=== PATIENT | female | born 1965 | race Caucasian/White ===

== ENCOUNTER 2016-08-25 11:27 | Emergency (ER) | payer OTHER ==
[~2016-08-25] VITALS: Ht 160 cm; Wt 56.7 kg
[~2016-08-25 11:27] MED LIST: 'PARAFON FORTE500 M1 PO; CEPHALEXIN500 M1 PO; CIPROFLOXACIN500 MG PO; FLEXERIL5 MG PO; HYDROCODONE BIT1 T11 PO; KEFLEX500 MG PO; MOTRIN600 MG PO; MOTRIN800 MG PO; NAPROSYN500 MG PO; NKHM; PREDNICOT20 MG PO; ULTRAM50 MG PO; ZYRTEC10 MG PO
[2016-08-25] MEDS ORDERED: KEFLEX500 M1 PO (13:29)
[2016-08-25] MEDS ORDERED: NAPROSYN500 MG PO (13:29)
[2016-08-25] MEDS ORDERED: ANTIBIOTIC O500 U/GM T (13:30)
== END 2016-08-25 13:34 | disposition home or self-care (01) ==
LOC: ED 11:27
DX: S51.012A Laceration without foreign body of left elbow, initial encounter (principal); S50.02XA Contusion of left elbow, initial encounter; R03.0 Elevated blood-pressure reading, without diagnosis of hypertension; F17.200 Nicotine dependence, unspecified, uncomplicated; W22.8XXA Striking against or struck by other objects, initial encounter; Y93.89 Activity, other specified; Y92.89 Other specified places as the place of occurrence of the external cause; Y99.9 Unspecified external cause status

== ENCOUNTER 2017-04-24 13:42 | Emergency (ER) | payer OTHER ==
[~2017-04-24] VITALS: Ht 160 cm; Wt 56.7 kg
[~2017-04-24 13:42] MED LIST changes: +ANTIBIOTIC O500 U/GM T; +KEFLEX500 M1 PO
[2017-04-24] MEDS ORDERED: LIDEX 0.05% CRE15 GM T (14:51)
== END 2017-04-24 14:59 | disposition home or self-care (01) ==
LOC: ED 13:42
DX: S90.562A Insect bite (nonvenomous), left ankle, initial encounter (principal); S90.561A Insect bite (nonvenomous), right ankle, initial encounter; S40.861A Insect bite (nonvenomous) of right upper arm, initial encounter; S00.261A Insect bite (nonvenomous) of right eyelid and periocular area, initial encounter; F17.200 Nicotine dependence, unspecified, uncomplicated; W57.XXXA Bitten or stung by nonvenomous insect and other nonvenomous arthropods, initial encounter; Y93.89 Activity, other specified; Y92.89 Other specified places as the place of occurrence of the external cause; Y99.8 Other external cause status

== ENCOUNTER 2017-12-02 17:10 | Emergency (ER) | payer OTHER ==
[~2017-12-02] VITALS: Ht 157.4 cm; Wt 56.7 kg
[~2017-12-02 17:10] MED LIST changes: +LIDEX 0.05% CRE15 GM T
[2017-12-02] MEDS ORDERED: Motrin,Rufen800 MG PO (17:21)
[2017-12-02] MEDS ORDERED: AMOXICILLIN500 M2 PO (17:21)
== END 2017-12-02 17:25 | disposition home or self-care (01) ==
LOC: ED 17:10
DX: K02.9 Dental caries, unspecified (principal)

== ENCOUNTER 2018-06-10 16:12 | Emergency (ER) | payer OTHER ==
[~2018-06-10] VITALS: Ht 157.4 cm; Wt 54.4 kg
[~2018-06-10 16:12] MED LIST changes: +AMOXICILLIN500 M2 PO; +Motrin,Rufen800 MG PO
[2018-06-10] MEDS ORDERED: SEPTDS PO (16:35)
[2018-06-10] MEDS ORDERED: CEPHALEXIN500 M1 PO (16:35)
[2018-07-09] MEDS ORDERED: TRAMADOL HCL50 MG PO (11:37)
[2018-10-05] MEDS ORDERED: IBUPROFEN600 MG PO (14:33)
== END 2018-06-10 16:35 | disposition home or self-care (01) ==
LOC: ED 16:12
DX: L02.212 Cutaneous abscess of back [any part, except buttock and flank] (principal); F17.200 Nicotine dependence, unspecified, uncomplicated; Z79.2 Long term (current) use of antibiotics; Z79.899 Other long term (current) drug therapy

== ENCOUNTER 2018-07-01 09:31 | Emergency (ER) | payer OTHER ==
[~2018-07-01] VITALS: Ht 157.4 cm; Wt 54.0 kg
--- NOTE | ~2018-07-01 | EKG ---
[place], [place] ELECTROCARDIOGRAM REPORT NAME: JULIANNA MAO UNIT #: [id number] ROOM: DOCTOR: EPIPHANY DRAFT REPORT BIRTHDATE: [birth year] [facility] Test Date: 2018-07-01 Test Time: 10:13:00 Pat Name: JULIANNA MAO Department: Room: Gender: F [employer]: : 1965 Requested By: TISH MARTINEZ Order Number: [id number] Reading MD: Bao Fernando MD Measurements Intervals [place] Rate: 100 P: 20 VA: 144 QRS: 29 QRSD: 76 T: 11 QT: 344 QTc: 444 Interpretive Statements Sinus tachycardia Probable left atrial enlargement No previous ECG available for comparison Electronically Signed On 07-03-2018 7:45:02 PST by Bao Fernando MD CM:EKGRPT:ELECTROCARDIOGRAM REPORT [id number] TISH MARTINEZ EPIPHANY DRAFT REPORT TISH MARTINEZ
[~2018-07-01 09:31] MED LIST changes: +SEPTDS PO
[2018-07-01 10:19] LABS: BASO % 0.2 % (0.0-1.0); EOS # 0.2 10*3/uL (0.0-0.4); EOS % 3.2 % (1.0-4.0); HEMATOCRIT 44.2 % (37.0-47.0); HEMOGLOBIN 14.8 g/dl (12.0-16.0); LYMPH # 0.4 10*3/uL (1.3-4.4); LYMPH % 5.7 % (27.0-41.0); MEAN CELL VOLUME 98.7 fl (81.0-99.0); MEAN CORPUSCULAR HGB CONC 33.5 g/dl (33.0-37.0); MEAN PLATELET VOLUME 9.3 fl (9.6-12.3); MONO # 0.4 10*3/uL (0.1-1.0); NEUT # 5.3 10*3/uL (2.3-7.9); NEUT % 83.4 % (47.0-73.0); PLATELET COUNT AUTOMATED 181 10*3/uL (130-400); RED BLOOD COUNT 4.48 10*6/uL (4.10-5.10); WHITE BLOOD COUNT 6.3 10*3/uL (4.8-10.8)
[2018-07-01 10:45] LABS: ALBUMIN 3.5 gm/dl (3.1-4.5); ALKALINE PHOSPHATASE 72 U/L (45-117); BUN 6 mg/dl (7-24); CHLORIDE 100 mmol/L (98-107); CREATININE 0.69 mg/dL (0.55-1.02); POTASSIUM 4.1 mmol/L (3.5-5.1); SGOT/AST 44 IU/L (3-35); SGPT/ALT 38 U/L (12-78); SODIUM 133 mmol/L (136-145); TOTAL PROTEIN 7.4 gm/dL (6.4-8.2)
[2018-07-01 10:49] LABS: TROPONIN I < 0.015 ng/ml (<0.045)
[2018-07-01] MEDS ORDERED: ROBAXIN500 M1 PO (11:21)
[2018-07-01] MEDS ORDERED: NAPROSYN500 MG PO (11:21)
[2018-07-09] MEDS ORDERED: TRAMADOL HCL50 MG PO (11:37)
[2018-10-05] MEDS ORDERED: IBUPROFEN600 MG PO (14:33)
== END 2018-07-01 11:30 | disposition home or self-care (01) ==
LOC: ED 09:31
PROVIDERS: Nurse Practitioner Family
DX: B27.90 Infectious mononucleosis, unspecified without complication (principal); M25.511 Pain in right shoulder; M25.512 Pain in left shoulder; F17.200 Nicotine dependence, unspecified, uncomplicated; Z79.2 Long term (current) use of antibiotics

== ENCOUNTER → 2018-07-09 | Day surgery (SDC) | payer OTHER ==
[~2018-07-09] VITALS: Ht 154.9 cm; Wt 54.0 kg
[~2018-07-09] MED LIST changes: +IBUPROFEN600 MG PO; +ROBAXIN500 M1 PO; +TRAMADOL HCL50 MG PO
[2018-07-09 09:54] VITALS: BP 130/69
[2018-07-09 11:15] VITALS: BP 103/79
[2018-07-09 11:29] VITALS: BP 107/71
[2018-07-09 11:45] VITALS: BP 124/72
== END | disposition home or self-care (01) ==
LOC: SDC 07-08 12:30
DX: L72.0 Epidermal cyst (principal); K21.9 Gastro-esophageal reflux disease without esophagitis; F17.210 Nicotine dependence, cigarettes, uncomplicated; Z98.890 Other specified postprocedural states; Z79.899 Other long term (current) drug therapy; Z72.89 Other problems related to lifestyle; Z82.49 Family history of ischemic heart disease and other diseases of the circulatory system; Z83.3 Family history of diabetes mellitus

== ENCOUNTER 2019-03-11 22:26 | Emergency (ER) | payer OTHER ==
[~2019-03-11] VITALS: Ht 157.4 cm; Wt 56.7 kg
[2019-03-12] MEDS ORDERED: PREDNISONE20 M1 PO (00:28)
[2019-03-12] MEDS ORDERED: ZITHROMAX250 MG PO (00:28)
== END 2019-03-12 01:37 | disposition home or self-care (01) ==
LOC: ED 22:26
DX: J40 Bronchitis, not specified as acute or chronic (principal); F17.200 Nicotine dependence, unspecified, uncomplicated; Z79.899 Other long term (current) drug therapy; Z79.2 Long term (current) use of antibiotics

== ENCOUNTER → 2019-07-03 | Outpatient (CLI) | payer OTHER ==
[~2019-07-03] MED LIST changes: +PREDNISONE20 M1 PO; +ZITHROMAX250 MG PO
== END | disposition home or self-care (01) ==
LOC: RAD 10:43
DX: M19.071 Primary osteoarthritis, right ankle and foot (principal); M77.9 Enthesopathy, unspecified

== ENCOUNTER 2019-09-14 15:30 | Emergency (ER) | payer OTHER ==
[~2019-09-14] VITALS: Ht 157.4 cm; Wt 59.0 kg
[2019-09-14 16:21] LABS: BASO # 0.1 10*3/uL (0.0-0.1); BASO % 0.7 % (0.0-1.0); EOS # 0.2 10*3/uL (0.0-0.4); EOS % 2.9 % (1.0-4.0); LYMPH # 2.1 10*3/uL (1.3-4.4); LYMPH % 29.6 % (27.0-41.0); MEAN CELL VOLUME 95.9 fl (81.0-99.0); MEAN CORPUSCULAR HGB 32.2 pg (27.0-31.0); MEAN CORPUSCULAR HGB CONC 33.6 g/dl (33.0-37.0); MEAN PLATELET VOLUME 9.1 fl (9.6-12.3); MONO # 0.9 10*3/uL (0.1-1.0); MONO % 12.4 % (3.0-9.0); NEUT # 3.7 10*3/uL (2.3-7.9); NEUT % 54.1 % (47.0-73.0); PLATELET COUNT AUTOMATED 224 10*3/uL (130-400); RED BLOOD COUNT 4.38 10*6/uL (4.10-5.10); RED CELL DISTRI WIDTH 11.8 % (0-14.5); WHITE BLOOD COUNT 6.9 10*3/uL (4.8-10.8)
[2019-09-14 16:38] LABS: ALBUMIN 3.5 gm/dl (3.1-4.5); ALKALINE PHOSPHATASE 112 U/L (45-117); BUN 7 mg/dl (7-24); CHLORIDE 106 mmol/L (98-107); CREATININE 0.62 mg/dL (0.55-1.02); LIPASE 198 U/L (73-393); POTASSIUM 3.9 mmol/L (3.5-5.1); SGOT/AST 22 IU/L (3-35); SGPT/ALT 37 U/L (12-78); SODIUM 137 mmol/L (136-145); TOTAL PROTEIN 7.4 gm/dL (6.4-8.2)
[2019-09-14 16:39] LABS: BILIRUBIN NEGATIVE (NEGATIVE); BLOOD TRACE-INTACT (NEGATIVE); CLARITY CLOUDY (CLEAR); COLOR YELLOW (YELLOW); GLUCOSE NEGATIVE (NEGATIVE); KETONE NEGATIVE (NEGATIVE); LEUKO ESTERASE 2+ (NEGATIVE); NITRITE NEGATIVE (NEGATIVE); UROBILINOGEN 0.2 E.U./dl (0.2-1.0)
[2019-09-14 17:02] LABS: WBC TNTC wbc/hpf (0-5)
[2019-09-14 17:03] LABS: BACTERIA 3+
[2019-09-14] MEDS ORDERED: MACROBID100 M1 PO (17:44)
[2019-09-14] MEDS ORDERED: PYRIDIUM200 M1 PO (17:44)
== END 2019-09-14 17:49 | disposition home or self-care (01) ==
LOC: ED 15:30
PROVIDERS: Emergency Medicine
DX: N39.0 Urinary tract infection, site not specified (principal); R14.0 Abdominal distension (gaseous); R63.5 Abnormal weight gain; Z79.2 Long term (current) use of antibiotics; Z79.899 Other long term (current) drug therapy

== ENCOUNTER → 2019-11-20 | Outpatient (CLI) | payer OTHER ==
[~2019-11-20] MED LIST changes: +MACROBID100 M1 PO; +PRILOSEC20 M1 PO; +PYRIDIUM200 M1 PO
== END | disposition home or self-care (01) ==
LOC: COVID19 00:07
DX: Z11.59 Encounter for screening for other viral diseases (principal)

== ENCOUNTER → 2019-11-27 | Day surgery (SDC) | payer OTHER ==
[~2019-11-27] VITALS: Ht 157.4 cm; Wt 60.3 kg
[2019-11-27 07:30] VITALS: BP 151/81
[2019-11-27 08:33] VITALS: BP 127/85
[2019-11-27 08:45] VITALS: BP 144/82
[2019-11-27 09:02] VITALS: BP 144/71
== END | disposition home or self-care (01) ==
LOC: SDC 11-23 08:45
DX: K92.1 Melena (principal); K21.9 Gastro-esophageal reflux disease without esophagitis; K44.9 Diaphragmatic hernia without obstruction or gangrene; K64.8 Other hemorrhoids; I10 Essential (primary) hypertension; Z87.891 Personal history of nicotine dependence; Z79.899 Other long term (current) drug therapy; Z83.3 Family history of diabetes mellitus

== ENCOUNTER 2020-07-07 20:00 | Emergency (ER) | payer OTHER ==
[~2020-07-07] VITALS: Ht 157.4 cm; Wt 61.2 kg
[2020-07-07 20:21] LABS: BILIRUBIN Negative (Negative); BLOOD Negative (Negative); CLARITY Clear (Clear); COLOR Yellow (Yellow); GLUCOSE Negative (Negative); KETONE Negative (Negative); LEUKO ESTERASE Negative (Negative); NITRITE Negative (Negative); SPECIFIC GRAVITY 1.015 (1.001-1.030); UROBILINOGEN 0.2 E.U./dl (0.0-1.0)
[2020-07-07 20:29] LABS: BACTERIA 1+; MUCOUS TRACE; RBC 0-2 rbc/hpf (0-2); WBC 0-2 wbc/hpf (0-5)
[2020-07-07 21:07] LABS: BASO # 0.1 10*3/uL (0.0-0.1); BASO % 1.1 % (0.0-1.0); EOS # 0.1 10*3/uL (0.0-0.4); EOS % 2.4 % (1.0-4.0); LYMPH # 2.3 10*3/uL (1.3-4.4); LYMPH % 49.8 % (27.0-41.0); MEAN CELL VOLUME 93.2 fl (81.0-99.0); MEAN CORPUSCULAR HGB 31.1 pg (27.0-31.0); MEAN CORPUSCULAR HGB CONC 33.4 g/dl (33.0-37.0); MEAN PLATELET VOLUME 8.8 fl (9.6-12.3); MONO # 0.5 10*3/uL (0.1-1.0); MONO % 11.5 % (3.0-9.0); NEUT # 1.6 10*3/uL (2.3-7.9); PLATELET COUNT AUTOMATED 229 10*3/uL (130-400); RED CELL DISTRI WIDTH 11.7 % (0-14.5); WHITE BLOOD COUNT 4.5 10*3/uL (4.8-10.8)
[2020-07-07 21:22] LABS: ALBUMIN 3.7 gm/dl (3.1-4.5); ALKALINE PHOSPHATASE 81 U/L (45-117); BUN 8 mg/dl (7-24); CHLORIDE 110 mmol/L (98-107); LIPASE 114 U/L (73-393); POTASSIUM 3.9 mmol/L (3.5-5.1); SGOT/AST 25 IU/L (3-35); SGPT/ALT 40 U/L (12-78); SODIUM 142 mmol/L (136-145); TOTAL PROTEIN 7.4 gm/dL (6.4-8.2)
== END 2020-07-07 23:46 | disposition home or self-care (01) ==
LOC: ED 20:00
PROVIDERS: Emergency Medicine; Student in an Organized Health Care Education/Training Program
DX: R10.31 Right lower quadrant pain (principal); R11.0 Nausea; K21.9 Gastro-esophageal reflux disease without esophagitis; F17.200 Nicotine dependence, unspecified, uncomplicated; Z79.899 Other long term (current) drug therapy

== ENCOUNTER → 2020-08-03 | Outpatient (CLI) | payer OTHER ==
[~2020-08-03] MED LIST changes: +ZOFRAN4 MG PO
== END | disposition home or self-care (01) ==
LOC: US 07:30
PROVIDERS: ATTEND Nurse Practitioner Family
DX: K76.0 Fatty (change of) liver, not elsewhere classified (principal)

== ENCOUNTER 2020-08-19 17:35 | Emergency (ER) | payer OTHER ==
[~2020-08-19] VITALS: Ht 157.4 cm
[~2020-08-19 17:35] MED LIST changes: -ZOFRAN4 MG PO
[2020-08-19 18:53] LABS: BASO % 0.5 % (0.0-1.0); EOS % 0.4 % (1.0-4.0); HEMATOCRIT 44.4 % (37.0-47.0); LYMPH # 1.6 10*3/uL (1.3-4.4); LYMPH % 21.4 % (27.0-41.0); MEAN CELL VOLUME 92.7 fl (81.0-99.0); MEAN CORPUSCULAR HGB 30.9 pg (27.0-31.0); MEAN CORPUSCULAR HGB CONC 33.3 g/dl (33.0-37.0); MEAN PLATELET VOLUME 9.2 fl (9.6-12.3); MONO # 0.7 10*3/uL (0.1-1.0); NEUT # 5.2 10*3/uL (2.3-7.9); PLATELET COUNT AUTOMATED 252 10*3/uL (130-400); RED BLOOD COUNT 4.79 10*6/uL (4.10-5.10); RED CELL DISTRI WIDTH 12.6 % (0-14.5); WHITE BLOOD COUNT 7.7 10*3/uL (4.8-10.8)
[2020-08-19 19:11] LABS: ALBUMIN 4.2 gm/dl (3.1-4.5); ALKALINE PHOSPHATASE 98 U/L (45-117); BUN 6 mg/dl (7-24); CHLORIDE 101 mmol/L (98-107); CREATININE 0.65 mg/dL (0.55-1.02); LIPASE 89 U/L (73-393); POTASSIUM 3.3 mmol/L (3.5-5.1); SGOT/AST 22 IU/L (3-35); SGPT/ALT 35 U/L (12-78); SODIUM 136 mmol/L (136-145)
[2020-08-19 20:11] LABS: BILIRUBIN Negative (Negative); BLOOD Negative (Negative); CLARITY Cloudy (Clear); COLOR Yellow (Yellow); GLUCOSE Negative (Negative); KETONE Trace (Negative); LEUKO ESTERASE Negative (Negative); NITRITE Negative (Negative); UROBILINOGEN 0.2 E.U./dl (0.0-1.0)
[2020-08-19 20:20] LABS: BACTERIA TRACE; EPITHELIAL CELLS 21-30; WBC 0-2 wbc/hpf (0-5)
[2020-08-19] MEDS ORDERED: ZOFRAN4 MG PO (22:23)
== END 2020-08-19 22:55 | disposition home or self-care (01) ==
LOC: ED 17:35
PROVIDERS: Emergency Medicine
DX: A08.4 Viral intestinal infection, unspecified (principal); R11.2 Nausea with vomiting, unspecified; Z79.899 Other long term (current) drug therapy

== ENCOUNTER → 2020-09-30 | Outpatient (CLI) | payer OTHER ==
[~2020-09-30] MED LIST changes: +ZOFRAN4 MG PO
[2020-09-30 09:27] LABS: HEMATOCRIT 44.1 % (37.0-47.0); MEAN CELL VOLUME 97.8 fl (81.0-99.0); MEAN CORPUSCULAR HGB CONC 31.7 g/dl (33.0-37.0); MEAN PLATELET VOLUME 9.3 fl (9.6-12.3); RED BLOOD COUNT 4.51 10*6/uL (4.10-5.10); RED CELL DISTRI WIDTH 12.1 % (0-14.5); WHITE BLOOD COUNT 7.3 10*3/uL (4.8-10.8)
[2020-09-30 10:02] LABS: ALBUMIN 3.8 gm/dl (3.1-4.5); BILIRUBIN, DIRECT < 0.1 mg/dL (0.0-0.2); SGPT/ALT 30 U/L (12-78)
[2020-09-30 10:05] LABS: ALKALINE PHOSPHATASE 82 U/L (45-117); CHOLESTEROL 222 mg/dL (<200); LDL CHOLESTEROL 124 mg/dL (9-159); SGOT/AST 24 IU/L (3-35); TOTAL PROTEIN 7.5 gm/dL (6.4-8.2); TRIGLYCERIDES 250 mg/dl (<150)
== END | disposition home or self-care (01) ==
LOC: LAB 08:49
PROVIDERS: ATTEND Nurse Practitioner Family
DX: K76.0 Fatty (change of) liver, not elsewhere classified (principal)

== ENCOUNTER 2020-12-21 14:51 | Emergency (ER) | payer OTHER ==
[~2020-12-21] VITALS: Wt 61.2 kg
== END 2020-12-21 19:48 | disposition home or self-care (01) ==
LOC: ED 14:51
DX: M71.552 Other bursitis, not elsewhere classified, left hip (principal); Z79.899 Other long term (current) drug therapy

== ENCOUNTER 2021-03-07 09:57 | Emergency (ER) | payer OTHER ==
[2021-03-07 10:20] LABS: BASO % 0.5 % (0.0-1.0); EOS # 0.1 10*3/uL (0.0-0.4); EOS % 0.9 % (1.0-4.0); HEMATOCRIT 44.2 % (37.0-47.0); LYMPH # 2.8 10*3/uL (1.3-4.4); MEAN CELL VOLUME 93.8 fl (81.0-99.0); MEAN CORPUSCULAR HGB 31.4 pg (27.0-31.0); MEAN CORPUSCULAR HGB CONC 33.5 g/dl (33.0-37.0); MONO % 12.6 % (3.0-9.0); NEUT # 4.2 10*3/uL (2.3-7.9); NEUT % 51.6 % (47.0-73.0); PLATELET COUNT AUTOMATED 266 10*3/uL (130-400); RED BLOOD COUNT 4.71 10*6/uL (4.10-5.10); RED CELL DISTRI WIDTH 12.2 % (0-14.5); WHITE BLOOD COUNT 8.1 10*3/uL (4.8-10.8)
[2021-03-07 10:30] LABS: ACT PARTIAL THROMBO TIME 29.1 SECONDS (20.0-32.1); INTERNATIONAL NORM RATIO 0.9 (2.0-3.5)
[2021-03-07 10:40] LABS: ALBUMIN 3.8 gm/dl (3.1-4.5); BUN 5 mg/dl (7-24); CHLORIDE 107 mmol/L (98-107); CREATININE 0.51 mg/dL (0.55-1.02); POTASSIUM 3.4 mmol/L (3.5-5.1); SGOT/AST 15 IU/L (3-35); SGPT/ALT 27 U/L (12-78); SODIUM 139 mmol/L (136-145)
[2021-03-07 11:00] LABS: ALKALINE PHOSPHATASE 96 U/L (45-117)
[2021-03-07 11:01] LABS: TROPONIN I < 0.015 ng/ml (<0.045)
[2021-03-07] MEDS ORDERED: METHOCARBAMOL500 M1 PO (16:23)
[2021-03-07] MEDS ORDERED: IBUPROFEN600 MG PO (16:23)
== END 2021-03-07 23:53 | disposition home or self-care (01) ==
LOC: ED 09:57
PROVIDERS: Emergency Medicine
DX: R07.89 Other chest pain (principal); M62.838 Other muscle spasm; F17.210 Nicotine dependence, cigarettes, uncomplicated; Z79.899 Other long term (current) drug therapy

== ENCOUNTER 2021-07-19 16:07 | Emergency (ER) | payer OTHER ==
[~2021-07-19] VITALS: Ht 160 cm; Wt 56.7 kg
[~2021-07-19 16:07] MED LIST changes: +METHOCARBAMOL500 M1 PO
== END 2021-07-19 19:46 | disposition home or self-care (01) ==
LOC: ED 16:07
DX: M25.561 Pain in right knee (principal); Z79.899 Other long term (current) drug therapy

== ENCOUNTER 2022-03-02 12:49 | Emergency (ER) | payer OTHER ==
[~2022-03-02] VITALS: Ht 157.4 cm; Wt 54.4 kg
[2022-03-02] MEDS ORDERED: AMITRIPTYLINE H10 M1 PO (15:04)
[2022-03-02] MEDS ORDERED: DICYCLOMINE HCL10 MG PO (15:05)
[2022-03-02] MEDS ORDERED: PREDNISONE50 MG PO (15:32)
== END 2022-03-02 15:57 | disposition home or self-care (01) ==
LOC: ED 12:49
DX: H83.01 Labyrinthitis, right ear (principal); Z79.899 Other long term (current) drug therapy; F17.200 Nicotine dependence, unspecified, uncomplicated

== ENCOUNTER 2023-06-18 16:40 | Emergency (ER) | payer OTHER ==
[~2023-06-18] VITALS: Ht 157.4 cm; Wt 54.0 kg
[~2023-06-18 16:40] MED LIST changes: +AMITRIPTYLINE H10 M1 PO; +DICYCLOMINE HCL10 MG PO; +PREDNISONE50 MG PO
[2023-06-18 17:22] LABS: BASO # 0.1 10*3/uL (0.0-0.1); BASO % 0.6 % (0.0-1.0); EOS # 0.2 10*3/uL (0.0-0.4); EOS % 2.1 % (1.0-4.0); HEMATOCRIT 42.8 % (37.0-47.0); LYMPH # 3.2 10*3/uL (1.3-4.4); LYMPH % 36.7 % (27.0-41.0); MEAN CELL VOLUME 93.2 fl (81.0-99.0); MEAN CORPUSCULAR HGB 30.5 pg (27.0-31.0); MEAN CORPUSCULAR HGB CONC 32.7 g/dl (33.0-37.0); MEAN PLATELET VOLUME 8.7 fl (9.6-12.3); MONO # 0.8 10*3/uL (0.1-1.0); NEUT # 4.5 10*3/uL (2.3-7.9); NEUT % 51.4 % (47.0-73.0); PLATELET COUNT AUTOMATED 364 10*3/uL (130-400); RED BLOOD COUNT 4.59 10*6/uL (4.10-5.10); RED CELL DISTRI WIDTH 12.1 % (0-14.5); WHITE BLOOD COUNT 8.8 10*3/uL (4.8-10.8)
[2023-06-18 17:34] LABS: ACT PARTIAL THROMBO TIME 28.9 SECONDS (20.0-32.1)
[2023-06-18 17:40] LABS: BUN 7 mg/dl (9-23); CHLORIDE 104 mmol/L (98-107); POTASSIUM 3.4 mmol/L (3.4-5.1)
== END 2023-06-18 19:38 | disposition home or self-care (01) ==
LOC: ED 16:40
PROVIDERS: Nurse Practitioner
DX: S70.02XA Contusion of left hip, initial encounter (principal); S80.02XA Contusion of left knee, initial encounter; K21.9 Gastro-esophageal reflux disease without esophagitis; Z98.890 Other specified postprocedural states; W00.0XXA Fall on same level due to ice and snow, initial encounter; Y93.89 Activity, other specified; Y92.89 Other specified places as the place of occurrence of the external cause; Y99.8 Other external cause status